=== PATIENT | female | born 1995 | race Caucasian/White ===

== ENCOUNTER 2016-10-30 11:55 | Emergency (ER) | payer SELFPAY ==
[~2016-10-30] VITALS: Ht 175.3 cm; Wt 60.0 kg
[2016-10-30 12:24] VITALS: BP 95/35
== END 2016-10-30 16:24 | disposition home or self-care (01) ==
LOC: ER 15:32
DX: M79.671 Pain in right foot (principal); K14.0 Glossitis; F15.10 Other stimulant abuse, uncomplicated; Z87.891 Personal history of nicotine dependence; Z86.19 Personal history of other infectious and parasitic diseases
CPT/HCPCS: 36415; 99283; G0482

== ENCOUNTER 2016-11-03 07:50 | Emergency (ER) | payer MEDICAID ==
[~2016-11-03] VITALS: Ht 175.3 cm; Wt 64.0 kg
[2016-11-03 07:57] VITALS: BP 118/73
== END 2016-11-03 12:36 | disposition left against medical advice (07) ==
LOC: ER 09:49
DX: K03.1 Abrasion of teeth (principal); F17.200 Nicotine dependence, unspecified, uncomplicated; F12.10 Cannabis abuse, uncomplicated
CPT/HCPCS: 99281

== ENCOUNTER 2016-11-28 10:25 | Emergency (ER) | payer MEDICAID ==
[~2016-11-28] VITALS: Ht 165.1 cm; Wt 67.0 kg
[2016-11-28 10:29] VITALS: BP 129/72
== END 2016-11-28 11:30 | disposition left against medical advice (07) ==
LOC: ER 11:10
DX: T65.91XA Toxic effect of unspecified substance, accidental (unintentional), initial encounter (principal); Z53.21 Procedure and treatment not carried out due to patient leaving prior to being seen by health care provider